=== PATIENT | female | born 1965 | race African-American/Black ===

== ENCOUNTER 2020-06-17 05:37 | Emergency (ER) | payer MEDICAID ==
[~2020-06-17] VITALS: Ht 172.7 cm; Wt 86.0 kg
[~2020-06-17 05:37] MED LIST: QUET100T
[2020-06-17 08:15] LABS: BASOPHILS % 0.6 % (0.0-2.0); EOSINOPHILS % 1.4 % (0.0-5.0); HEMATOCRIT. 43.6 % (36.0-48.0); HEMOGLOBIN. 14.8 g/dL (12.0-16.0); MEAN CORPUSCULAR HEMOGLOBIN 30.5 pg (28.0-32.0); MEAN CORPUSCULAR VOLUME 89.9 fL (81.0-99.0); MEAN PLATELET VOLUME 9.3 fl (7.4-10.4); MONOCYTES % 6.2 % (2.0-8.0); NEUTROPHILS % 50.8 % (40.0-76.0); PLATELET 275 x1000/uL (130-400); RED BLOOD CELL COUNT 4.86 mill/uL (4.2-5.4); RED CELL DISTRIBUTION WIDTH 13.3 % (11.6-14.6)
[2020-06-17 08:17] LABS: CLARITY URINE CLOUDY (CLEAR); COLOR URINE YELLOW (YELLOW); KETONES URINE NEGATIVE (NEGATIVE); LEUKOCYTE ESTERASE URINE 2+ (NEGATIVE); NITRITE URINE POSITIVE (NEGATIVE); OCCULT BLOOD URINE NEGATIVE (NEGATIVE); PH URINE 5.5 (4.5-8.0); PROTEIN URINE NEGATIVE (NEGATIVE); SPECIFIC GRAVITY URINE 1.014 (1.005-1.030); UROBILINOGEN URINE 0.2 E.U./dL (0.2-1.0)
[2020-06-17] MEDS: OLANZAPINE 5MG TABLET PO SCH (10:00)
[2020-06-17 11:43] LABS: CHLORIDE 110 mEq/L (98-107)
[2020-06-17 11:50] LABS: *BARBITURATES SCREEN URINE NEGATIVE (NEGATIVE)
[2020-06-17 11:51] LABS: *AMPHETAMINES SCREEN URINE NEGATIVE (NEGATIVE); *BENZODIAZEPINES SCREEN URINE NEGATIVE (NEGATIVE); *COCAINE SCREEN URINE PRESUMTIVE POSITIVE (NEGATIVE)
[2020-06-17 11:54] LABS: CANNABINOID URINE SCREEN NEGATIVE (NEGATIVE); METHADONE URINE SCREEN NEGATIVE (NEGATIVE); OPIATES URINE SCREEN NEGATIVE (NEGATIVE); PHENCYCLIDINE URINE SCREEN PRESUMTIVE POSITIVE (NEGATIVE)
[2020-06-17] MEDS ORDERED: LORAZEPAM 1MG TABLET PO ONE (23:45)
[2020-06-18] MEDS: OLANZAPINE 5MG TABLET PO SCH (09:45)
[2020-06-18] MEDS ORDERED: CEPHALEXIN 250MG CAPSULE PO ONE (14:00)
[2020-06-18] MEDS: QUETIAPINE FUMARATE 50MG TABLET PO SCH (23:04)
[2020-06-19] MEDS ORDERED: BUSPIRONE HCL 5MG TABLET PO ONE (09:15)
[2020-06-19] MEDS ORDERED: SERTRALINE HCL 50MG TABLET PO SCH (09:15)
[2020-06-19] MEDS: QUETIAPINE FUMARATE 50MG TABLET PO SCH (09:50)
[2020-06-19 11:30] VITALS: BP 120/80
== END 2020-06-19 13:00 | disposition home or self-care (01) ==
LOC: ER 05:37
DX: R44.1 Visual hallucinations (principal); F31.9 Bipolar disorder, unspecified; I10 Essential (primary) hypertension; F17.290 Nicotine dependence, other tobacco product, uncomplicated; F14.10 Cocaine abuse, uncomplicated; F12.10 Cannabis abuse, uncomplicated; Z20.828 Contact with and (suspected) exposure to other viral communicable diseases
CPT/HCPCS: 36415; 80053; 80305; 81003; 85025; 87077; 87086; 87186; 87635; 93005; 99285; C9803; Z7610